=== PATIENT | male | born 1960 | race Caucasian/White ===

== ENCOUNTER → 2018-03-25 | Outpatient (CLI) | payer BC ==
[~2018-03-25] MED LIST: IBUP-1050 PO; MULT-506 PO
[2018-03-25 13:05] LABS: BASO % 0.5 %; BASO ABS # 0.03 K/uL (0-0.2); EOS % 1.2 %; EOS ABS # 0.07 K/uL (0-0.5); HEMATOCRIT 43.1 % (42-52); HEMOGLOBIN 15.3 g/dL (14.0-18.0); LYMPH % 32.3 %; LYMPH ABS # 1.82 K/uL (1.2-3.4); MEAN CELL VOLUME 88.9 fL (80-100); MEAN CORPUSCULAR HEMOGLOBIN 31.5 pg (25-34); MEAN CORPUSCULAR HGB CONC 35.5 g/dl (32-36); MEAN PLATELET VOLUME 10.6 fL (7.4-10.4); MONO % 7.1 %; NEUT % 58.9 %; NEUT ABS # 3.31 K/uL (1.4-6.5); PLATELET COUNT 203 K/uL (130-400); RED CELL DISTRIBUTION WIDTH CV 12.2 % (11.5-14.5); RED CELL DISTRIBUTION WIDTH SD 39.3 fL (36.4-46.3); WHITE BLOOD COUNT 5.63 K/uL (4.8-10.8)
[2018-03-25 13:19] LABS: ALBUMIN 3.8 gm/dl (3.4-5.0); AST/SGOT 26 U/L (15-37); BLOOD UREA NITROGEN 17 mg/dl (7-18); CALCIUM 8.8 mg/dl (8.5-10.1); CARBON DIOXIDE 29 mmol/L (21-32); CHOLESTEROL 181 mg/dl (0-200); CREATININE 0.97 mg/dl (0.60-1.40); GLUCOSE 89 mg/dl (70-99); POTASSIUM 3.8 mmol/L (3.5-5.1); SODIUM 138 mmol/L (136-145)
[2018-03-25 13:29] LABS: ALKALINE PHOSPHATASE 75 U/L (45-117); ALT/SGPT 49 U/L (12-78); LDL CHOLESTEROL CALCULATED 104 mg/dl; TOTAL PROTEIN 7.3 gm/dl (6.4-8.2)
[2018-03-26 12:11] LABS: ANA SCREEN TC 249X POSITIVE (NEGATIVE)
== END | disposition home or self-care (01) ==
LOC: C.LABBC 10:43
PROVIDERS: ATTEND Internal Medicine
DX: Z00.00 Encounter for general adult medical examination without abnormal findings (principal); H91.90 Unspecified hearing loss, unspecified ear; Z68.32 Body mass index [BMI] 32.0-32.9, adult; M25.50 Pain in unspecified joint; M79.1 Myalgia

== ENCOUNTER → 2018-04-01 | Outpatient (CLI) | payer BC ==
--- NOTE | 2018-04-01 09:09 | DIAGNOSTIC IMAGING REPORT ---
AORTIC ANEURYSM RETROPERI CLINICAL HISTORY: 57 years-old Male presenting with I71.4 Abdominal aortic aneurysm (AAA) without rupture03/30/18 @ 8. TECHNIQUE: Real-time grayscale and color and spectral Doppler ultrasound imaging of the abdominal aorta and iliac arteries was performed. COMPARISON: 07/23/2011. FINDINGS: Proximal aorta: Atherosclerosis. Transverse dimension 3.0 x 3.3 cm. The previous maximum diameter was 2.9 cm. Mid aorta: Atherosclerosis. Transverse dimension 2.7 x 3.5 cm. The previous maximum diameter was 2.5 cm. Distal aorta: Atherosclerosis with fusiform dilatation of the aorta consistent with aneurysm. Transverse dimension 4.4 x 4.4 cm. The previous maximum diameter was 2.7 cm. Right iliac artery: Atherosclerosis. Transverse dimension 1.5 x 1.3 cm. Left iliac artery: Atherosclerosis. Transverse dimension 1.4 x 1.3 cm. IMPRESSION: 1. Infrarenal abdominal aortic aneurysm measuring 4.4 x 4.4 cm, significantly increased from the prior exam in 2010. The report will be called/faxed according to standard departmental protocol. Electronically signed by: Juan Canas M.D. 04/01/2018 9:07 AM Dictated Date/Time: 04/01/2018 9:04 AM
== END | disposition home or self-care (01) ==
LOC: C.ULTR 08:19
PROVIDERS: ATTEND Internal Medicine
DX: I71.4 Abdominal aortic aneurysm, without rupture (principal)

== ENCOUNTER 2021-07-29 05:50 | Inpatient (IN) ==
--- NOTE | 2021-07-24 19:15 | PAT Medication Instructions ---
Medication Instructions Date of Service July 24, 2021 Home Medications Medication Instructions Recorded lisinopril 10 mg tablet 10 mg PO BID #180 tab 03/21/21 amlodipine 5 mg tablet 5 mg PO QAM #90 tab 05/17/21 omega 0-ixq-bdo-fish oil 1,000 mg (120 mg-180 mg) capsule (Fish Oil) 1 cap PO QPM vitamins A,C,M-rwgp-pedjbe 14,320 unit-226 mg-200 unit capsule (PreserVision AREDS) 1 cap PO QPM multivitamin 1 tab PO QAM lisinopril 10 mg tablet 10 mg PO BID amlodipine 5 mg tablet 5 mg PO QAM STOP taking 2 weeks before surgery omega 4-zxe-pvw-fish oil 1,000 mg (120 mg-180 mg) capsule (Fish Oil) 1 cap PO QPM vitamins A,C,E-reus-hapbqk 14,320 unit-226 mg-200 unit capsule (PreserVision AREDS) 1 cap PO QPM DO NOT take the morning of surgery multivitamin 1 tab PO QAM lisinopril 10 mg tablet 10 mg PO BID Take morning of surgery With a small sip of water, OTHERWISE NOTHING TO EAT OR DRINK AFTER MIDNIGHT: amlodipine 5 mg tablet 5 mg PO QAM Take evening before surgery lisinopril 10 mg tablet 10 mg PO BID Other Notes If you have any questions please call us at [phone] or [phone] or [phone] or [phone]
--- NOTE | 2021-07-25 08:36 | Anesthesiology Consultation ---
Date of Service July 25, 2021 Assessment & Plan (1) Encounter for pre-operative examination: Chart Review Chart Review: Acceptable Risk for Surgery and Patient seen in Pre Admission Testing Per [facility] appt on 07/25/21, patient denies any recent travel or large group activities. No known Covid positive contacts or Covid related symptoms. No known Covid infection in the past 90 days. Pt is vaccinated for Covid.. Preop Covid testing done at [facility] appt on 07/25/21= negative.. Educated on importance of self quarantining, social distancing and wearing mask in public for the patient one week prior to surgery and after Covid testing done Open umbilical hernia repair with mesh 05/31/20= done under [facility] with Grade 2 view with MAC#3. ETT # 7.5. Consults Requested Pre-Anesthesia Teaching/Discussion Notes: Instructed NPO after midnight before surgery,except medications with 15 cc of water. Medication instructions provided according to the [facility] guidelines. History Surgery Operation Date: 07/29/21 08:00 Proposed Procedures p Percutaneous Endovascular Aneurysm Repair - Tai Del Rio MD Height/Weight Height: 6 ft Weight: 107.2 kg Allergies Allergy/AdvReac Type Severity Reaction Status Date / Time Penicillins Allergy Mild swelling, Verified 07/24/21 07:48 joint pain Medications Home Medications Medication Instructions Recorded Confirmed Last Taken omega 7-ryj-wsq-fish oil 1,000 mg 1 cap PO QPM 11/22/18 07/24/21 05/30/20 08:00 (120 mg-180 mg) capsule (Fish Oil) vitamins A,C,N-ydnn-liycyy 14,320 1 cap PO QPM 11/22/18 07/24/21 05/30/20 08:00 unit-226 mg-200 unit capsule (PreserVision AREDS) multivitamin 1 tab PO QAM tab 12/25/20 07/24/21 Unknown lisinopril 10 mg tablet 10 mg PO BID #180 tab 03/21/21 07/24/21 Unknown amlodipine 5 mg tablet 5 mg PO QAM #90 tab 05/17/21 07/24/21 Unknown Past Medical History Medical History (Updated 07/25/21 @ 08:51 by Neida Oquendo PA-C) AAA (abdominal aortic aneurysm) Since 2010. Per 07/15/21 vascular note- ultrasound in May 2021 showed AAA increased to 5.3cm. CTA done that showed AAA 5.5cm on 07/08/21. Also shows left common iliac quite tortuous. 2 main renal arteries on either side. 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 No significant symptoms the past 2 years Exercise / Class Metabolic Activity II 4-5 Yardwork/Stairs/Walk up hill (one flight of stairs - no chest pain or SOB ) Past Family History Family History Father Diabetes Anxiety Cancer Mother Stomach cancer Anxiety Cancer Grandfather Myocardial infarction Other No family history of adverse response to anesthesia Denies family history of Ovarian cancer Prostate cancer Breast cancer Colorectal cancer Past Surgical History Surgical History H/O umbilical hernia repair (05/31/20) Open Umbilical Incarcerated Hernia Repair with SurgiMesh Dr. Devi 05/31/2020 History of colonoscopy (12/06/18) Diverticulosis. Hyperplastic polyps. F/U 2028. History of cystoscopy History of tonsillectomy History of tooth extraction wisdom teeth Hx of vasectomy Past Anesthesia History No Hx of Anesthesia Complications and No Family Hx of Anesthesia Complications History of PONV No Hx of PONV and No Hx of Motion Sickness Social History Smoking Status: Former smoker tobacco type: cigarettes Do You Dip or Chew Tobacco: No Smoking End Date: Quit 1999 Hx Alcohol Use: Yes Alcohol type: beer alcohol intake frequency: holidays/special occasions only Hx Substance Use: No substance use type: does not use Review of Systems Occ reflux- mild- relived OTC antacids. Patient denies chest pain, shortness of breath, dyspnea on exertion, cough, wheezing, palpitations. No hx of seizures, stroke, RI, apnea/snoring. No hx of blood clots or blood transfusions Physical Exam Vital Signs VITALS BP 110/65 P 60 TEMP 98.2 SP02 98% RESP 16 Constitutional no acute distress ENMT Mouth: no TMJ clicking Thyromental Distance: > or= 3.5 Finger Breadths (4.0) Mallampati Class: III Missing molars Neck + limited neck extension (mild ) Respiratory normal respiratory effort; no respiratory distress Auscultation: lungs clear to auscultation bilaterally; no wheezes Cardiovascular Rate/Rhythm: regular rate and regular rhythm Heart Sounds: no murmur Vessels: no carotid bruit Musculoskeletal Spine: + pain with cervical ROM (stiffness ) Extremities: extremities normal to inspection Psychiatric Orientation: alert Lab Results Anesthesia Preop Results Results Anesthesia Widget: WBC 6.29 K/uL (4.8-10.8) 07/25/21 Hgb 14.4 g/dL (14.0-18.0) 07/25/21 Hct 41.5 % (42-52) L 07/25/21 Plt 192 K/uL (130-400) 07/25/21 Na 139 mmol/L (136-145) 07/25/21 K 4.2 mmol/L (3.5-5.1) 07/25/21 Cl 107 mmol/L (98-107) 07/25/21 CO2 27 mmol/L (21-32) 07/25/21 BUN 21 mg/dl (7-18) H 07/25/21 Creat 0.97 mg/dl (0.6-1.4) 07/25/21 Glucose Level 95 mg/dl (70-99) 07/25/21 PT 10.3 Seconds (9.0-12.0) 07/25/21 PTT 28.5 Seconds (21.0-31.0) 07/25/21 INR 1.0 (0.9-1.1) 07/25/21 Blood Type O Positive 07/25/21 Antibody Screen NEGATIVE 07/25/21 Testing Electrocardiogram Date: 07/25/21 Findings: + SB @ (55bpm) Otherwise normal EKG per cardio Chest X-Ray Date: 07/25/21 Findings: + NAD and + cardiomegaly (mild) PA and lateral chest radiographs are compared to study dated 05/23/2020. The heart is mildly enlarged noting atherosclerotic calcification of the thoracic aorta. The pulmonary vasculature is noncongested. Emphysematous change is suspected. No airspace consolidation or pleural effusion is identified. There is no pneumothorax. The bony thorax appears intact. Echocardiogram Date: 07/18/21 EF: 60% LV Function: normal RWMA: + none Other Findings: no LVH Valvular Disease: + no significant valvular disease Dilated RV ventricle with normal systolic function Dilated RA. Other Testing Aorta iliac duplex 05/27/2021 = abdominal aortic aneurysm identified measuring 5.3 cm AP by 5.1 cm traverse. Aneurysm is infrarenal and fusiform. Common iliac arteries are ectatic, measuring 1.4 cm in the distal right LINDY and 1.5 cm in the mid and distal left LINDY. No stenosis identified in the abdominal aorta or bilateral iliac or common femoral arteries. When compared to study from 11/19/2020infrarenal abdominal aorta size appears to have increased from 4.8 cm to 5.3 cm Abdomen/pelvis CTA 07/08/2021 = Moderate atherosclerosis with fusiform aneurysmal dilation of the infrarenal abdominal aorta measuring up to 5.5 x 5.3 cm, previously measuring up to 4.4 cm on the 2018 exam and 3.1 cm on the 2010 exam. No dissection or aneurysm rupture. Hepatic steatosis.
[2021-07-29] MEDS ORDERED: CLINDAMYCIN 600 MG/54 ML BAG IV SCH (06:00)
[2021-07-29] MEDS ORDERED: SODIUM CHLORIDE 0.9% 1000ML IV SCH (06:00)
[2021-07-29] MEDS ORDERED: GELATIN SPONGE SZ 100 ONE (06:55)
[2021-07-29] MEDS ORDERED: THROMBIN 5000 UNITS KIT ONE (06:55)
[2021-07-29] MEDS ORDERED: HEPARIN (PORCINE) 1000 UNIT/ML 10 ML (CATH LAB USE ONLY) ONE (06:55)
[2021-07-29] MEDS ORDERED: DEXAMETHASONE SOD INJ 4 MG/ML VIAL ONE (07:02)
[2021-07-29] MEDS ORDERED: ROCURONIUM BROMIDE 10 MG/ML 5 ML VIAL IV ONE ×2 (07:02→09:18)
[2021-07-29] MEDS ORDERED: LIDOCAINE 2% 2 ML VIAL/AMP(20MG/ML) INFIL ONE (07:02)
[2021-07-29] MEDS ORDERED: PROPOFOL IV EMULSION 10 MG/ML 20 ML VIAL IV ONE ×2 (07:02→09:49)
[2021-07-29] MEDS ORDERED: fentaNYL citrate 100 MCG/2 ML VIAL ONE ×2 (07:02→09:15)
[2021-07-29] MEDS ORDERED: MIDAZOLAM HCL 1 MG/ML 2ML VIAL ONE (07:02)
[2021-07-29] MEDS ORDERED: ONDANSETRON INJ 2 MG/ML 2 ML VIAL ONE (07:02)
[2021-07-29 07:14] LABS: BUN Creatinine Ratio 14.7 (10-20); Calcium 8.8 mg/dl (8.5-10.1); Creatinine Clr Calc Pharmacy 82.8 ml/min; Est GFR (African American) 76.5 ml/min; Potassium 3.7 mmol/L (3.5-5.1)
--- NOTE | 2021-07-29 07:29 | History & Physical Report ---
Date of Service July 29, 2021 Assessment & Plan (1) AAA (abdominal aortic aneurysm): Plan: Patient for PEVAR of his AAA. I have discussed the risks options and benefits of the procedure with the patient. The patient understands the risks options and benefits and agrees to the procedure. History of Present Illness Chief Complaint: AAA Primary Care Provider: Juan Nunez MD July 15, 2021 Name: BULMARO WALL [facility] [place] Number: [id number] : 1960 Date of Service: 07/15/2021 Juan Nunez MD [address], [address] [place] [address] Fax #: [phone] Nunez: I had the pleasure of seeing Mr. Wall in the [facility] Surgery Clinic in followup for his abdominal aortic aneurysm. As you know, this is a very pleasant 60-year-old gentleman who we have been following for a known infrarenal abdominal aortic aneurysm. When we last saw him, his ultrasound had noted that his aneurysm had grown to 5.3 cm, this was in May. We subsequently sent him to get a CT angiography to better delineate the anatomy for preoperative planning. He did undergo this study. He presents today with his to discuss the results. On physical examination, his vital signs are as follows: Oxygen saturation 97% on room air, heart rate 88, blood pressure 112/62. He is well appearing, well nourished, in no acute distress. He is awake, alert, and responds to questions appropriately. He is accompanied to today's visit by his who remains in the room for the duration of the interview and examination. He is breathing comfortably on room air. His pulse is regular. His abdomen is obese, however, soft, nontender, nondistended. His bilateral groins are free of rashes or wounds. His bilateral feet are warm and well perfused. There are palpable dorsalis pedis pulses bilaterally. On review of his CT angiography which was performed at [facility] on 06/17, this is notable for infrarenal abdominal aortic aneurysm which is 5.5 cm in greatest diameter. The access vessels appear adequate. Of note, the left common iliac is quite tortuous. There are 2 main renal arteries on either side. Additionally, the left renal artery has an accessory renal. There does appear to be an adequate neck for endovascular repair. In summary, this is a very pleasant 60-year-old gentleman who has a 5.5 cm infrarenal abdominal aortic aneurysm. His anatomy does appear suitable for endovascular abdominal aortic aneurysm repair. The procedure and associated ri sks were discussed with the patient and his today. They are interested in proceeding with the surgery. We will get him scheduled. He has completed his COVID vaccine series. Thank you for allowing me to participate in the care of this patient. Please do not hesitate to contact me with questions or concerns. Sincerely, I saw and evaluated the patient. Discussed with the resident and agree with the resident's findings and plan as documented in the resident's note. Signature Line Electronic Signature on File Autumn Vicente MD Author Signature Dt/Tm: 07/16/2021 01:56 PM Resident Division of Vascular Surgery Electronically Reviewed/Signed by: aTi Del Rio MD Cosigner Signature Dt/Tm: 07/16/2021 01:14 PM Tyre Fitter Twin Julian [facility] [place], [address] [place] [address] ST /CO Result Type: .Outpt Ltr Date of Service: July 15, 2021 00:00 EDT Authorization Status: Final Author or Import Date: MD Vicente Sandra on July 15, 2021 13:42 EDT Verified By: MD Eliane, Tai Calvo on July 16, 2021 13:14 EDT Encounter info: [id number], [place] [address], Clinic, 07/15/2021 - 07/15/2021 Contributor system: [email or web address] Allergies Allergy/AdvReac Type Severity Reaction Status Date / Time Penicillins Allergy Mild swelling, Verified 07/29/21 06:52 joint pain Home Medications Medication Instructions Recorded Confirmed Type omega 1-wce-xlc-fish oil 1,000 mg 1 cap PO QPM 11/22/18 07/29/21 History (120 mg-180 mg) capsule (Fish Oil) vitamins A,C,A-lzxk-ebbxgk 14,320 1 cap PO QPM 11/22/18 07/29/21 History unit-226 mg-200 unit capsule (PreserVision AREDS) multivitamin 1 tab PO QAM tab 12/25/20 07/29/21 History lisinopril 10 mg tablet 10 mg PO BID #180 tab 03/21/21 07/29/21 Rx amlodipine 5 mg tablet 5 mg PO QAM #90 tab 05/17/21 07/29/21 Rx Past Med/Surg History Medical History AAA (abdominal aortic aneurysm) Since 2010. Per 07/15/21 vascular note- ultrasound in May 2021 showed AAA increased to 5.3cm. CTA done that showed AAA 5.5cm on 07/08/21. Also shows left common iliac quite tortuous. 2 main renal arteries on either side. 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 No significant symptoms the past 2 years Surgical History H/O umbilical hernia repair (05/31/20) Open Umbilical Incarcerated Hernia Repair with SurgiMesh Dr. Devi 05/31/2020 History of colonoscopy (12/06/18) Diverticulosis. Hyperplastic polyps. F/U 2028. History of cystoscopy History of tonsillectomy History of tooth extraction wisdom teeth Hx of vasectomy Family History Father Diabetes Anxiety Cancer Mother Stomach cancer Anxiety Cancer Grandfather Myocardial infarction Other No family history of adverse response to anesthesia Denies family history of Ovarian cancer Prostate cancer Breast cancer Colorectal cancer Social History Smoking Status: Former smoker Age Started Using Tobacco: 18; Age Quit Using Tobacco: 42; Years Smoked: 24; Smoking End Date: Quit 1999; Second Hand Exposure: Yes (parents smoked); Do You Dip or Chew Tobacco: No; Tobacco Cessation Education Requested by Patient: No Hx Alcohol Use: No Hx Substance Use: No Preferred Language: Tajik Communication Ability: Effective Visual Impairment: Partially Limited Hearing Ability: Normal Filenet Admin Required: No Beliefs That Will Affect Care: None marital status: Current Living Situation: Spouse 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
[2021-07-29] MEDS ORDERED: ONDANSETRON INJ 2 MG/ML 2 ML VIAL IV PRN ×2 (07:34→14:38)
[2021-07-29] MEDS ORDERED: LABETALOL HCL IV 5 MG/ML 20ML IV PRN (07:34)
[2021-07-29] MEDS ORDERED: ATROPINE SULFATE 0.1 MG/ML 10ML SYR IV PRN (07:34)
[2021-07-29] MEDS ORDERED: GLYCOPYRROLATE 0.2 MG/ML VIAL ONE (09:19)
[2021-07-29] MEDS ORDERED: NEOSTIGMINE METHYLSULFATE 1 MG/ML 10ML VIAL ONE (09:19)
[2021-07-29] MEDS ORDERED: ARISTA ABSORBABLE HEMOSTAT 3GM TOP ONE (09:22)
[2021-07-29] MEDS ORDERED: VISIPAQUE IV PRN (09:22)
--- NOTE | 2021-07-29 09:34 | Procedure Note ---
Angiogram Post Procedure Fluoroscopy Time (minutes): 13.8 Radiation (mGy): 976.98 Contrast: 220 Post Operative Report Pre & Post Diagnosis Operation Date: 07/29/21 08:00 Pre-Op Diagnosis: Abdominal Aortic Aneurysm Post-Op Diagnosis: Abdominal Aortic Aneurysm I identified the patient and participated in the time-out.: Yes Procedure Operation Date: 07/29/21 08:00 Actual Procedures p Percutaneous Endovascular Aneurysm Repair, ultrasound utilization of bilateral femoral arteries, mechanical closure of bilateral femoral arteries(Bilateral) - Tai Del Rio MD Surgeon Tai Del Rio MD Paper Tube Machine Operator none Estimated Blood Loss 50 Findings Consistent with Post-Op Diagnosis Specimens none Anesthesia Type General Complications none Disposition Accompanied Patient To Recovery: No Disposition: Recovery Room Indications 60-year-old gentleman who has a 5.5 cm abdominal aortic aneurysm. Repair was recommended. He is a candidate for an endovascular repair. I have discussed the risks options and benefits of the procedure with the patient. The patient understands the risks options and benefits and agrees to the procedure. Description of Procedure The patient was taken to the operating room and placed supine position. Both groins were prepped draped in a sterile manner. A timeout was performed after general anesthesia was accomplished with the patient was identified. The right common femoral artery was identified. It was soft and had good flow was patent. This was then punctured under ultrasound and a 5 [place] sheath inserted. Injection through 5 [place] sheath showed the sheath to be in the common femoral artery anteriorly. Ultrasound was then used in the left groin. Again the artery was patent. A puncture was then made under ultrasound guidance and a 5 [place] sheath inserted. Again on this side the hand-injection showed the sheath to be punctured anteriorly into the common femoral artery. We then preclosed both groins with 2 pro glides. 8 [place] sheaths were then inserted after the last Pro-glide was placed. 035 Glidewire was inserted through the right groin 8 [place] sheath. Kumpe catheter was then inserted over the wire after he was positioned superiorly. The 035 Glidewire was removed and a Huffman wire was inserted. Same procedure was done on the left side. Once both Shirley wires were in place the 8 [place] sheath left groin was removed and a 12 [place] dry seal was inserted. On the right side the 8 [place] sheath was removed 12 [place] dilator was used to dilate the artery followed by a 16 [place] dry seal. A pigtail was inserted through the left groin. We then passed a 26 x 14-1/2 x 616 C3 excluder from the right groin. Aortogram was performed to vishal the renal arteries. We then deployed the main trunk. It deployed slightly lower. The hooks were retracted and the graft was readjusted and then redeployed. Angiogram done at this time showed the proximal top of the graft to be just below the renal arteries. The pigtail was then removed. The hooks were released. Using 035 guidewire and a Kumpe catheter the gate was cannulated with the 035 wire. The Kumpe was advanced. It spun easily in the neck of the aneurysm. We then reinserted the Huffman wire. The sheath was pulled down into the left external iliac. A pigtail was reinserted. Hand-injection was performed to vishal the origin of the internal iliac. That point we decided use a 16 x 14 and half by 14 contralateral limb. The pigtail was then removed. The 12 [place] dilator was reinserted into the sheath and the sheath advanced into the gate. The contralateral limb was then in a placed over the wire. Was placed in appropriate position and deployed without difficulty. The right limb on the MC side was deployed. We then injected through the sheath which was in the external iliac. Internal iliac artery was marked. We then decided to use a 16 x 14-1/2 x 7 cm iliac disk sharpener on the right side. This was inserted and deployed without difficulty. Q50 was then used to balloon the attachment sites and overlaps. After this was done the Q50 50 was removed and a pigtail was reinserted. Angiogram done at the end showed no evidence of type I endoleak. The top of the graft was below the renal arteries. There was a type II endoleak seen which appeared to be from the SHAHEEN. This showed on the delayed film. This point an 035 wire was reinserted and the pigtail pigtail was removed. The right groin was closed first with the pro glides. Adequate seal was noted. We then closed the left groin pro glides and again a good seal was seen on the left side. Sterile dressings were applied to the puncture sites.The patient left the operation room in satisfactory condition and tolerated the procedure well. All needle and sponge counts were correct at the end of the procedure. I attest to the content of the Intraoperative Record and any orders documented therein. Any exceptions are noted below.
[2021-07-29] MEDS ORDERED: ePHEDrine sulfate 50 MG/ML AMP ONE (09:49)
[2021-07-29] MEDS ORDERED: PHENYLEPHRINE HCL 10 MG/ML VIAL ONE (09:49)
--- NOTE | 2021-07-29 10:34 | Anesthesiology Progress Note ---
Date of Service July 29, 2021 Anesthesia Post Procedure Vital Signs Vital Signs: Temp Pulse Pulse Resp BP BP Pulse Ox 07/29/21 10:30 36.8 C 68 13 137/82 97 07/29/21 10:20 67 12 137/84 97 07/29/21 10:10 62 14 134/82 100 07/29/21 10:00 64 12 135/84 100 07/29/21 09:50 67 16 129/88 100 07/29/21 09:43 36.2 C L 70 12 138/87 100 07/29/21 06:46 36.8 C 67 20 137/87 135/92 100 Pain Intensity Bilateral Groin: Pain Intensity: 2 Transfer of Care Handoff Completed per policy Notes Mental Status: alert / awake / arousable Patient Amnestic to Procedure: Yes Nausea / Vomiting: adequately controlled Pain: adequately controlled Airway Patency, RR, SpO2: stable & adequate BP & HR: stable & adequate Hydration State: stable & adequate Anesthetic Complications: no major complications apparent
[2021-07-29] MEDS: fentaNYL citrate 100 MCG/2 ML VIAL IV PRN ×4 (10:59→14:08)
[2021-07-29 11:48] LABS: Basophils # (auto) 0.02 K/uL (0-0.2); Basophils % (auto) 0.4 %; Eosinophils # (auto) 0.02 K/uL (0-0.5); Eosinophils % (auto) 0.4 %; Hematocrit (blood only) 39.7 % (42-52); Hemoglobin 13.8 g/dL (14.0-18.0); Immature Granulocytes # (auto) 0.01 K/uL (0.00-0.02); Immature Granulocytes % (auto) 0.2 %; Lymphocytes # (auto) 0.91 K/uL (1.2-3.4); Lymphocytes % (auto) 16.4 %; Mean Corpuscular Hemoglobin 31.7 pg (25-34); Mean Corpuscular Volume 91.1 fL (80-100); Mean Platelet Volume 10.2 fL (7.4-10.4); Monocytes # (auto) 0.12 K/uL (0.11-0.59); Monocytes % (auto) 2.2 %; Neutrophils # (auto) 4.48 K/uL (1.4-6.5); Neutrophils % (auto) 80.4 %; Platelet Count 166 K/uL (130-400); RDW Coefficient of Variation 11.7 % (11.5-14.5); RDW Standard Deviation 38.6 fL (36.4-46.3); Red Blood Count 4.36 M/uL (4.7-6.1); White Blood Count 5.56 K/uL (4.8-10.8)
[2021-07-29 12:05] LABS: Mean Corpuscular Hgb Conc 34.8 g/dL (32-36)
[2021-07-29] MEDS ORDERED: MoRPHine SULFATE 4 MG/ML 1 ML CARP\\VIAL IV PRN (14:38)
--- NOTE | 2021-07-29 15:34 | Critical Care Consultation ---
Date of Consultation July 29, 2021 Assessment & Plan (1) AAA (abdominal aortic aneurysm): Assessment: 60yo male with HTN, HLD, and AAA s/p PEVAR performed earlier today by Dr. Del Rio,admitted to the ICU for postoperative monitoring. Critical care indication: risk of life-threatening complications s/p vascular surgery 24-hour events: underwent PEVAR this afternoon, procedure was tolerated well Plan: Neurologic CAM ICU negative Sedation: none Analgesia: morphine 1-4mg IV q2h prn, oxycodone/APAP 1-2 tab PO q4h prn Cardiac BP stable at this time Continue home amlodipine, lisinopril Respiratory No prior history of respiratory disease Maintaining adequate oxygen saturation on room air Continue to monitor Gastrointestinal Diet: heart healthy diet Zofran 4mg IV q6h prn nausea Renal/electrolytes No significant electrolyte derangement at this time Replete electrolytes as needed Continue LR @ 125mL/hr Genitourinary No concerns at this time Hodge catheter draining normal-appearing urine at this time Strict I/O's Endocrine BSG stable, control as needed with ISS No known history of DM2 or other endocrine disorder Hematologic Hgb with very mild anemia at this time Follow daily CBC Blood type: O pos Infectious disease Afebrile since admission No concern for infection at this time Monitor fever curve Continue empiric clindamycin Integumentary No concerns at this time Lines/access PIVs intact Prophylaxis DVT ppx: SCD's GI ppx: none Thank you the opportunity to participate in this patient's care. Please refer to Dr. Feng's documentation for further recommendations. (2) Allergic dermatitis: Supervising Physician Co-Signing Physician Notes Patient seen and examined with resident physician. Agree with assessment and plan aside for any additions/exceptions noted: Patient doing well status post PEVAR. Minimal abdominal tenderness. Pulses intact. He does have some itchiness in his head and chest. It appears that he had some mild allergic dermatitis. He is receiving clindamycin. May be secondary to clindamycin. We will give a one-time dose of IV Benadryl. Will defer management of perioperative antibiotics to vascular surgery. Blood pressure parameters and pain management per vascular surgery. Thank you for the consult. We will continue to follow along with you while he remains in the ICU. Physical exam: Constitutional: Patient appears to be of their stated age. Patient is in no apparent distress. Patient is well-developed. Eyes: Pupils are equal round and reactive to light. Conjunctivae are normal. Anicteric sclera. Ears nose, mouth and throat: Mallampati class II. No significant erythema. Neck: Trachea is midline. Visual inspection is normal. Respiratory: Clear to auscultation bilaterally. No use of accessory muscles. No significant clubbing noted. Cardiovascular: Regular rate and rhythm. No murmurs. No edema. Distal pulses intact in the lower extremities. Gastrointestinal: Normal bowel sounds, soft, nontender and nondistended. No hepatosplenomegaly noted. Musculoskeletal: No cyanosis. Patient is able to move all extremities. Strength is 5 out of 5 in the upper and lower extremities. Skin: Mild allergic dermatitis noted on his head and chest. Diffuse morbilliform rash with blanching along the scalp and chest. Neurologic: No obvious focal neurological deficits seen. Psychiatric: Alert and oriented x3 with a euthymic affect. History of Present Illness Reason for Consultation: Postsurgical monitoring Attending Physician: Tai Del Rio MD History of Present Illness 60yo male with HTN, HLD, and AAA presents to the ICU for postsurgical monitoring after Dr. Del Rio performed a PEVAR earlier today for patient's 5.5cm AAA. Patient tolerated the procedure well and is currently comfortable. Patient endorses mild sleepiness and a bit of abdominal discomfort but otherwise feels well. Denies fever, CP, SOB, nausea, vomiting, confusion, headache, or other symptoms. Patient reports not passing gas since prior to the procedure. Patient does not have an appetite yet. Allergies Allergy/AdvReac Type Severity Reaction Status Date / Time Penicillins Allergy Mild swelling, Verified 07/29/21 06:52 joint pain Home Medications Medication Instructions Recorded Confirmed Type omega 9-xtw-jps-fish oil 1,000 mg 1 cap PO QPM 11/22/18 07/29/21 History (120 mg-180 mg) capsule (Fish Oil) vitamins A,C,P-uhvk-wfiyjm 14,320 1 cap PO QPM 11/22/18 07/29/21 History unit-226 mg-200 unit capsule (PreserVision AREDS) multivitamin 1 tab PO QAM tab 12/25/20 07/29/21 History lisinopril 10 mg tablet 10 mg PO BID #180 tab 03/21/21 07/29/21 Rx amlodipine 5 mg tablet 5 mg PO QAM #90 tab 05/17/21 07/29/21 Rx Patient History Medical History (Updated 07/29/21 @ 18:12 by Louie Feng MD) AAA (abdominal aortic aneurysm) Since 2010. Per 07/15/21 vascular note- ultrasound in May 2021 showed AAA increased to 5.3cm. CTA done that showed AAA 5.5cm on 07/08/21. Also shows left common iliac quite tortuous. 2 main renal arteries on either side. 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 No significant symptoms the past 2 years Surgical History H/O umbilical hernia repair (05/31/20) Open Umbilical Incarcerated Hernia Repair with Roz Devi 05/31/2020 History of colonoscopy (12/06/18) Diverticulosis. Hyperplastic polyps. F/U 2028. History of cystoscopy History of tonsillectomy History of tooth extraction wisdom teeth Hx of vasectomy Family History Father Diabetes Anxiety Cancer Mother Stomach cancer Anxiety Cancer Grandfather Myocardial infarction Other No family history of adverse response to anesthesia Denies family history of Ovarian cancer Prostate cancer Breast cancer Colorectal cancer Social History Smoking Status: Former smoker Age Started Using Tobacco: 18; Age Quit Using Tobacco: 42; Years Smoked: 24; Smoking End Date: Quit 1999; Second Hand Exposure: Yes (parents smoked); Do You Dip or Chew Tobacco: No; Tobacco Cessation Education Requested by Patient: No Hx Alcohol Use: No Hx Substance Use: No Preferred Language: Uzbek Communication Ability: Effective Visual Impairment: Partially Limited Hearing Ability: Normal Hydrographic Engineer Required: No Beliefs That Will Affect Care: None marital status: Current Living Situation: Spouse 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 Other Information That Helps Us Care for You: No Feels Safe at Home: Yes Safety Concerns: Feels Safe At This Time Dental Care, Regularly: Yes Physical Activity Frequency: Does not Exercise Seatbelt Use: always Sunscreen Use: No Assistive Devices: Glasses Review of Systems Review of Systems: See HPI Physical Exam Physical Exam: Constitutional: awake, well-appearing, laying in bed in no acute distress HEENT: NCAT, no conjunctival injection, MMM CV: regular rhythm, no murmur appreciated, extremities well-perfused Resp: CTABL, no wheezes/rales/rhonchi appreciated, no increased work of breathing GI: soft, minimal discomfort to palpation, no tenderness, BS present Skin: warm, dry, no rash appreciated Neuro: AOx4, no focal neurological deficits appreciated Results & Data Results & Data ([facility]) Vital Signs (Past 12 Hours) Vital Signs Temp Pulse Pulse Resp BP BP Pulse Ox 07/29/21 14:42 131/66 07/29/21 14:25 97 07/29/21 14:05 74 13 130/78 96 07/29/21 13:35 91 H 16 129/96 96 07/29/21 13:05 84 20 145/93 H 95 07/29/21 12:25 71 12 141/87 H 98 07/29/21 11:55 67 21 133/86 98 07/29/21 11:40 71 20 131/84 97 07/29/21 11:25 67 12 139/86 96 07/29/21 11:10 62 12 128/82 95 07/29/21 11:00 67 13 129/83 97 07/29/21 10:50 60 12 125/87 95 07/29/21 10:40 65 13 138/92 99 07/29/21 10:30 36.8 C 68 13 137/82 97 07/29/21 10:20 67 12 137/84 97 07/29/21 10:10 62 14 134/82 100 07/29/21 10:00 64 12 135/84 100 07/29/21 09:50 67 16 129/88 100 07/29/21 09:43 36.2 C L 70 12 138/87 100 07/29/21 06:46 36.8 C 67 20 137/87 135/92 100 Resident Activity Tracking Resident Involvement: Resident Care Provided Care Provided: Adult Hospital Medicine
[2021-07-29] MEDS: lisinopril 10 MG TAB PO SCH ×2 (15:59→23:11)
[2021-07-29] MEDS: MULTIVITAMIN TAB PO SCH (15:59)
[2021-07-29] MEDS: LACTATED RINGER'S 1,000 ML IV SCH ×2 (15:59→17:42)
[2021-07-29] MEDS: amLODIPine BESYLATE 5 MG TAB PO SCH (15:59)
[2021-07-29] MEDS ORDERED: CLINDAMYCIN 600 MG in DEXTROSE 5% 50 ML IV SCH (16:00)
[2021-07-29] MEDS: oxyCODONE/ACETAMINOPHEN 5mg/325mg TAB PO PRN ×2 (16:02→23:17)
[2021-07-29] MEDS ORDERED: diphenhydrAMINE 50 MG/ML VIAL IV STA ×2 (18:09→23:13)
--- NOTE | 2021-07-29 18:10 | Billing Data ---
Date of Service July 29, 2021 Coding Level of Care Code 16218 Inpt Consult Level 3
[2021-07-29] MEDS ORDERED: NON-FORMULARY MEDICATION (Omega 3-Dha-Epa-Fish Oil [Fish Oil] 1,000 mg (120 mg-180 mg) Cap PO SCH (21:00)
[2021-07-29] MEDS ORDERED: diphenhydrAMINE 50 MG/ML VIAL ONE (23:09)
[2021-07-30 06:19] LABS: Hematocrit (blood only) 40.6 % (42-52); Hemoglobin 14.1 g/dL (14.0-18.0)
[2021-07-30 06:42] LABS: BUN Creatinine Ratio 15.1 (10-20); Calcium 8.8 mg/dl (8.5-10.1); Creatinine Clr Calc Pharmacy 110.7 ml/min; Est GFR (African American) 107.7 ml/min; Est GFR (Non-African American) 92.9 ml/min; Potassium 3.7 mmol/L (3.5-5.1)
[2021-07-30] MEDS: amLODIPine BESYLATE 5 MG TAB PO SCH (08:17)
[2021-07-30] MEDS: lisinopril 10 MG TAB PO SCH (08:17)
[2021-07-30] MEDS: MULTIVITAMIN TAB PO SCH (08:17)
--- NOTE | 2021-07-30 08:17 | Critical Care Progress Note ---
Date of Service July 30, 2021 Assessment & Plan (1) AAA (abdominal aortic aneurysm): Plan: Assessment: 60yo male with HTN, HLD, and AAA s/p PEVAR (07/29) by Dr. Del Rio, admitted to the ICU for postoperative monitoring. Critical care indication: risk of life-threatening complications s/p vascular surgery 24-hour events: underwent PEVAR 07/29, tolerated procedure well, no acute events overnight; plan for DC home today per Dr. Del Rio Plan: Neurologic CAM ICU negative Sedation: none Analgesia: morphine 1-4mg IV q2h prn, oxycodone/APAP 1-2 tab PO q4h prn Intermittent itchiness possibly secondary to anesthesia, continue to monitor, no s/sx anaphylaxis at this time Cardiac BP stable at this time Continue home amlodipine, lisinopril Respiratory No prior history of respiratory disease Maintaining adequate oxygen saturation on room air Continue to monitor Gastrointestinal Diet: heart healthy diet Zofran 4mg IV q6h prn nausea Renal/electrolytes No significant electrolyte derangement at this time Replete electrolytes as needed Continue LR @ 125mL/hr Genitourinary No concerns at this time Hodge catheter draining normal-appearing urine at this time Strict I/O's Endocrine BSG stable, control as needed with ISS No known history of DM2 or other endocrine disorder Hematologic Hgb with very mild anemia at this time Follow daily CBC Blood type: O pos Infectious disease Afebrile since admission No concern for infection at this time Monitor fever curve Continue empiric clindamycin Integumentary No concerns at this time Lines/access PIV x2 Prophylaxis DVT ppx: SCD's GI ppx: none Thank you the opportunity to participate in this patient's care. Please refer to Dr. Feng's documentation for further recommendations. Plan: Patient seen exam with the resident physician. I agree with his assessment and plan aside for any additions/exceptions noted: Patient is stable for discharge home. He is doing very well status post PEVAR yesterday. He has a mild allergic dermatitis likely secondary to a delayed reaction from iodinated contrast. Symptoms are minimal at present. Primary team intends to send him home with a methylprednisone Dosepak. Continue home medications as per the recommendations of his vascular surgery team. ICU will sign off. Thank you for the consult. Physical exam: Constitutional: Patient appears to be of their stated age. Patient is in no apparent distress. Patient is well-developed. Eyes: Pupils are equal round and reactive to light. Conjunctivae are normal. Anicteric sclera. Ears nose, mouth and throat: Mallampati class II. No significant erythema. Neck: Trachea is midline. Visual inspection is normal. Respiratory: Clear to auscultation bilaterally. No use of accessory muscles. No significant clubbing noted. Cardiovascular: Regular rate and rhythm. No murmurs. No edema. Distal pulses intact in the lower extremities. Gastrointestinal: Normal bowel sounds, soft, nontender and nondistended. No hepatosplenomegaly noted. Musculoskeletal: No cyanosis. Patient is able to move all extremities. Strength is 5 out of 5 in the upper and lower extremities. Skin: Mild allergic dermatitis noted on his head and chest. Diffuse morbilliform rash with blanching along the scalp and chest. This is improved from yesterday. Neurologic: No obvious focal neurological deficits seen. Psychiatric: Alert and oriented x3 with a euthymic affect. Admission and Anticipated Discharge Date Admission Date: July 29, 2021 Subjective Patient seen and evaluated at bedside this morning. No acute events overnight. Patient feels well today, endorsing mild abdominal discomfort in addition to mild generalized itchiness that has been intermittent since surgery. Patient denies BM since surgery but endorses flatus. Tolerating PO without issue. Patient denies CP, SOB, nausea, vomiting, lightheadedness, dizziness, and diarrhea. Review of Systems Review of Systems: See HPI Physical Exam Physical Exam: Constitutional: awake, well-appearing, sitting up in bed, no acute distress HEENT: MMM CV: regular rhythm, no murmur appreciated, extremities well-perfused Resp: CTABL, no wheezes/rales/rhonchi appreciated, no increased work of breathing GI: soft, mild discomfort to palpation, no tenderness, BS present Skin: warm, dry, no rash appreciated Neuro: AOx4, no focal neurological deficits appreciated Results & Data Results & Data ([facility]) Vital Signs (Past 12 Hours) Vital Signs Temp Pulse Resp BP Pulse Ox 07/30/21 06:26 36.6 C 60 16 139/74 100 07/30/21 05:26 61 16 123/76 100 07/30/21 04:26 62 12 123/70 94 07/30/21 03:26 64 12 105/70 95 07/30/21 02:26 75 12 125/66 97 07/30/21 01:26 83 17 117/68 95 07/30/21 00:26 62 17 113/66 95 07/30/21 00:00 74 07/29/21 23:26 36.6 C 55 L 12 132/82 99 07/29/21 23:06 36.8 C 07/29/21 22:26 57 L 12 112/70 96 07/29/21 21:26 62 13 113/65 96 07/29/21 20:26 60 14 105/66 96 Resident Activity Tracking Resident Involvement: Resident Care Provided Care Provided: Adult Hospital Medicine
--- NOTE | 2021-07-30 09:35 | Surgery Progress Note ---
Date of Service July 30, 2021 Assessment & Plan (1) AAA (abdominal aortic aneurysm): Plan: Pt POD #1 after uncomplicated PEVAR, doing well post op. Does have generalized erythematous pruritic rash consistent with hives. Most likely allergen is contrast dye. Will discharge home today with steroid taper, benadryl. Pt to call with any other concerns. Admission and Anticipated Discharge Date Admission Date: July 29, 2021 Subjective 60 yo m POD #[address] Del Rio, seen in f/u today. Pt states overall feeling well, but does admit a red, pruritic skin rash that began last evening. Has had some relief with diphenhydramine. Mild discomfort BL groins. No SOB or difficulty breathing. Denies chest pain, abd pain, N/V, ligtheadedness, leg pain, other concerns. Taking PO well. Good UO. Review of Systems Review of Systems: negative aside from HPI Physical Exam Constitutional: WD/WN, vitals as above Respiratory: normal respiratory effort, lungs clear to auscultation Cardiovascular: Rate/Rhythm: regular rate and regular rhythm Vessels: femoral pulses present, posterior tibial pulses present and dorsalis pedis pulses present Gastrointestinal (Abdomen): Inspection/Auscultation: abdomen normal to inspection and normal bowel sounds Percussion/Palpation: abdomen soft; abdomen nontender Musculoskeletal: no cyanosis or clubbing, extremities motor strength 5/5 Skin: + rash (erythematous rash on face, chest, torso, arms) and + wound (BL groin wounds C/D/I, L groin with small clot noted, no hematoma) Neurologic: moves all extremities and awake; no focal motor deficits and not confused Psychiatric: A+Ox3, euthymic affect Results & Data ([facility]) Vital Signs (Past 12 Hours) Vital Signs Temp Pulse Resp BP Pulse Ox 07/30/21 09:01 71 12 133/70 99 07/30/21 08:26 87 18 135/76 100 07/30/21 08:00 36.5 C 07/30/21 07:26 60 13 127/74 98 07/30/21 06:26 36.6 C 60 16 139/74 100 07/30/21 05:26 61 16 123/76 100 07/30/21 04:26 62 12 123/70 94 07/30/21 03:26 64 12 105/70 95 07/30/21 02:26 75 12 125/66 97 07/30/21 01:26 83 17 117/68 95 07/30/21 00:26 62 17 113/66 95 07/30/21 00:00 74 07/29/21 23:26 36.6 C 55 L 12 132/82 99 07/29/21 23:06 36.8 C 07/29/21 22:26 57 L 12 112/70 96
--- NOTE | 2021-07-30 09:41 | Discharge Summary ---
Date of Service July 30, 2021 Admission HPI Per Admitting Provider July 15, 2021 Name: BULMARO WALL [facility] Number: [id number] : 1960 Date of Service: 07/15/2021 Juan Nunez MD [address], [address] [place] [address] Fax #: [phone] Nunez: I had the pleasure of seeing Mr. Wall in the Vascular Surgery Clinic in followup for his abdominal aortic aneurysm. As you know, this is a very pleasant 60-year-old gentleman who we have been following for a known infrarenal abdominal aortic aneurysm. When we last saw him, his ultrasound had noted that his aneurysm had grown to 5.3 cm, this was in May. We subsequently sent him to get a CT angiography to better delineate the anatomy for preoperative planning. He did undergo this study. He presents today with his to discuss the results. On physical examination, his vital signs are as follows: Oxygen saturation 97% on room air, heart rate 88, blood pressure 112/62. He is well appearing, well nourished, in no acute distress. He is awake, alert, and responds to questions appropriately. He is accompanied to today's visit by his who remains in the room for the duration of the interview and examination. He is breathing comfortably on room air. His pulse is regular. His abdomen is obese, however, soft, nontender, nondistended. His bilateral groins are free of rashes or wounds. His bilateral feet are warm and well perfused. There are palpable dorsalis pedis pulses bilaterally. On review of his CT angiography which was performed at [facility] on 07/08/2021, this is notable for infrarenal abdominal aortic aneurysm which is 5.5 cm in greatest diameter. The access vessels appear adequate. Of note, the left common iliac is quite tortuous. There are 2 main renal arteries on either side. Additionally, the left renal artery has an accessory renal. There does appear to be an adequate neck for endovascular repair. In summary, this is a very pleasant 60-year-old gentleman who has a 5.5 cm infrarenal abdominal aortic aneurysm. His anatomy does appear suitable for endovascular abdominal aortic aneurysm repair. The procedure and associated risks were discussed with the patient and his today. They are interested in proceeding with the surgery. We will get him scheduled. He has completed his COVID vaccine series. Thank you for allowing me to participate in the care of this patient. Please do not hesitate to contact me with questions or concerns. Sincerely, I saw and evaluated the patient. Discussed with the resident and agree with the resident's findings and plan as documented in the resident's note. Signature Line Electronic Signature on File Autumn Vicente MD Author Signature Dt/Tm: 07/16/2021 01:56 PM Resident Division of Vascular Surgery Electronically Reviewed/Signed by: Tai Del Rio MD Cosigner Signature Dt/Tm: 07/16/2021 01:14 PM Skidder [employer]ner [facility] [place], [address] [place] [address] ST /CO Result Type: .Outpt Ltr Date of Service: July 15, 2021 00:00 EDT Authorization Status: Final Author or Import Date: MD Vicente Sandra on July 15, 2021 13:42 EDT Verified By: MD Eliane, Tai Calvo on July 16, 2021 13:14 EDT Encounter info: [id number], [facility], Clinic, 07/15/2021 - 07/15/2021 Contributor system: [id number] Admission Exam Per Admitting Provider On physical examination, his vital signs are as follows: Oxygen saturation 97% on room air, heart rate 88, blood pressure 112/62. He is well appearing, well nourished, in no acute distress. He is awake, alert, and responds to questions appropriately. He is accompanied to today's visit by his who remains in the room for the duration of the interview and examination. He is breathing comfortably on room air. His pulse is regular. His abdomen is obese, however, soft, nontender, nondistended. His bilateral groins are free of rashes or wounds. His bilateral feet are warm and well perfused. There are palpable dorsalis pedis pulses bilaterally. Principal Diagnosis 1. s/p PEVAR 2. AAA Discharge Exam Constitutional WD/WN, vitals as above Respiratory normal respiratory effort, lungs clear to auscultation Cardiovascular Rate/Rhythm: regular rate and regular rhythm Vessels: femoral pulses present, posterior tibial pulses present and dorsalis pedis pulses present Gastrointestinal (Abdomen) Inspection/Auscultation: abdomen normal to inspection and normal bowel sounds Percussion/Palpation: abdomen soft; abdomen nontender Musculoskeletal no cyanosis or clubbing, extremities motor strength 5/5 Skin + rash (erythematous rash on face, chest, torso, arms) and + wound (BL groin wounds C/D/I, L groin with small clot noted, no hematoma) Neurologic moves all extremities and awake; no focal motor deficits and not confused Psychiatric A+Ox3, euthymic affect Discharge Data Allergies Allergy/AdvReac Type Severity Reaction Status Date / Time Iodinated Contrast Media Allergy Mild HIVES Verified 07/30/21 09:29 Penicillins Allergy Mild swelling, Verified 07/29/21 06:52 joint pain Consultations 07/29/21 07:29 Consult Facility Designer Routine Procedures Performed Operation Date: 07/29/21 08:00 Actual Procedures p Percutaneous Endovascular Aneurysm Repair, ultrasound utilization of bilateral femoral arteries, mechanical closure of bilateral femoral arteries(Bilateral) - Tai Del Rio MD Ordered Studies 07/29/21 07:09 EV AAA repair aorta only Routine US EV guide vascular access Routine Hospital Course (1) AAA (abdominal aortic aneurysm): Pt POD #1 after uncomplicated PEVAR, doing well post op. Does have generalized erythematous pruritic rash consistent with hives. Most likely allergen is contrast dye. Will discharge home today with steroid taper, benadryl. Pt to call with any other concerns. Total Time Total Time Spent Total Time Spent (In Minutes): 0 Discharge Plan Discharge Items Patient Disposition: Home - Self-Care Reason For Visit: Abdominal Aortic Aneurysm Discharge Diagnosis: Abdominal aortic aneurysm, Post percutaneous aortic aneurysm repair Activity: Per Instructions section Bathing Comment: May shower Non-emergency contact: Surgeon Call non-emergency contact if: your temperature is above 101.5, your wound has increased redness, your wound has increased drainage and your wound pain has increased Follow-up/Referrals: Juan Nunez MD [Primary Care Provider] - Diet: Heart Healthy Addtl Attending Provider Instructions: SPECIAL CARE INSTRUCTIONS: Medications: * Continue to take your medications as directed. Incision/Puncture Site Care: * You will have an incision or puncture in each of your groins. Liquid glue will be used to seal your incisions/puncture site. This will lift off as the incisions/puncture sites heal. * If Liquid glue is not used, there will be small dressings covering your incisions. After you get home, you may remove the dressings and shower - allowing the warm soapy water to run over it. * Be sure to dry the sites well and keep them dry. * DO NOT SOAK IN A TUB/POOL/etc. UNTIL ALL SURGICAL SITES ARE HEALED. DO NOT REMOVE THE GLUE UNTIL THE INCISIONS HEAL. Restrictions: * Limit yourself to asphalt mixer activity for the first week. * You may walk and go up and down steps. * Avoid excessive bending or movement at the level of the incisions or punctures. Risks and Possible Complications: * Infection/Drainage/Bleeding - Drainage or bleeding from the incisions/puncture site should be minimal. If you have excessive bleeding or drainage, call our office ([phone]) right away. * Pain/Numbness - You may experience some mild pain or soreness at your incision sites. You may also have some numbness around the incisions or into the insides of your thighs. Bruising is normal and should resolve within 2 weeks. * Changes in Appetite or Bowel Habits - Mostly related to anesthesia and pain medication, some patients have reported decreased appetite and/or problems with constipation. These symptoms usually improve over a few weeks. Remembering to take an [id number] stool softener, as directed, will help you to avoid constipation. Call our office and seek emergent treatment if you develop: * Fever or chills * Have a temperature greater than 101 degrees F * Any redness or purulent drainage from your incisions or punctures * Severe abdominal, chest or back pain SKIN IRRITATION: * You may experience some redness and/or swelling in the area where radiation was administered. If any skin irritation occurs, please contact your family physician. You will be receiving a call from the Vascular Surgery Nurse after you are discharged. FOLLOW UP VISIT: It is important for you to keep your follow up appointments with your medical provider. Keep any scheduled doctor appointments. Call [phone] to schedule a follow up appointment if one not already scheduled. Pending Studies at Discharge: No Stand-Alone Forms: My [employer], Smoking Cessation Medications and DC Order Prescriptions: New oxycodone-acetaminophen [Percocet] 5-325 mg tablet 1 tab PO Q8H PRN (Reason: pain) Qty: 7 RF: 0 methylprednisolone [Medrol (Mikhail)] 4 mg tablets,dose pack 4 mg PO UD Qty: 21 RF: 0 Continued lisinopril 10 mg tablet 10 mg PO BID Qty: 180 RF: 3 amlodipine 5 mg tablet 5 mg PO QAM Qty: 90 RF: 3 PreserVision AREDS [id number]-[id number] Capsule 1 cap PO QPM RF: 0 omega 8-iwb-whh-fish oil [Fish Oil] 1,000 mg (120 mg-180 mg) Capsule 1 cap PO QPM RF: 0 multivitamin Tablet 1 tab PO QAM RF: 0 Discharge Orders: Discharge Order (Routine); Ordered 07/30/21 Ordered By: Tai Del Rio Admission Data Admit Date/Time: 07/29/21 07:29 Attending Provider: Tai Del Rio Admit Provider: Tai Del Rio Primary Care Provider: Juan Nunez Other Providers: Bulmaro Roberto ; Saul Johnson ; Kaden Banuelos ; Louie Feng ; Chito Aviles ; Moises Malik ; Robin Gardner
--- NOTE | 2021-07-30 11:53 | Billing Data ---
Date of Service July 30, 2021 Coding Level of Care Code 91293 Initial Inpt Care Lvl 1
== END 2021-07-30 12:35 | disposition home or self-care (01) | DRG 269 ==
LOC: ASU 05:50 → PACUINP 07:29 → 1E 14:23
PROC: EV.EVAR (2021-07-29 08:00)
DX: I10 Essential (primary) hypertension; Z87.891 Personal history of nicotine dependence; Z88.0 Allergy status to penicillin; D64.9 Anemia, unspecified; Z83.3 Family history of diabetes mellitus; I71.4 Abdominal aortic aneurysm, without rupture